=== PATIENT | male | born 1940 | race Caucasian/White ===

== ENCOUNTER → 2017-08-10 13:32 | Outpatient (CLI) | payer MEDICARE, SELFPAY ==
[2017-08-10 12:30] VITALS: BP 146/71; BMI 33.0
--- NOTE | 2017-08-10 13:34 | CT_ITS ---
STUDY: CT CHEST WITH CONTRAST REASON FOR EXAM: Male, 77 years old. Shortness of breath, enlarged lymph nodes, lung cancer 2 years ago status post radiation and chemotherapy. RADIATION DOSAGE (If Supplied By Facility): CTDIvol = ( 14.51 ) mGy, DLP = ( 1080.83 ) mGycm TECHNIQUE: Transaxial imaging was performed following intravenous administration of 100 ml of Isovue 300 contrast material. Individualized dose optimization techniques were used for this CT. COMPARISON: Prior study of March 17, 2015 FINDINGS: There is increased soft tissue mass with air bronchograms of the medial right upper lobe, measuring approximately 7.6 cm in depth, 2.5 cm in width, and 6.6 cm in length. This density partially encases the distal right main bronchus and encases the proximal right upper lobe bronchus. There is a right hilar mass/adenopathy measuring approximately 2.7 x 2.5 cm, similar to the previous study. There is a calcified subcarinal node. There are additional subcarinal nodes measuring up to 1.1 cm in short axis. These appear stable in the interval. There is no demonstrated pleural abnormality. The heart size is within normal limits. Coronary arterial calcifications are present. There is no pericardial effusion. The main, left, and right pulmonary arteries are normal in caliber and contour. There are calcified plaques of the thoracic aorta. There are multi-level degenerative changes of the thoracic spine. Calcific sludge/gravel is seen in the gallbladder. CT/Chest WITH Contrast IMPRESSION: 1. Soft tissue mass with air bronchograms of the medial right upper lobe measuring approximately 7.6 x 2.5 x 6.6 cm. This is increased in size from the prior study, suggestive of progression of primary disease process. This density partially encases the distal right main bronchus and encases the proximal right upper lobe bronchus. 2. There is a right hilar mass/adenopathy measuring approximately 2.7 x 2.5 cm, similar to the previous study. 3. There are subcarinal nodes measuring up to 1.1 cm in short axis, stable in the interval. 4. There is calcific sludge/gravel within the gallbladder. Electronically Signed: Cecilio Mares MD at 23:36 EST , Service support ,
--- NOTE | 2017-08-10 13:41 | CT_ITS ---
STUDY: CT SOFT TISSUE NECK WITH CONTRAST REASON FOR EXAM: Male, 77 years old. Shortness of breath, enlarged lymph nodes, history of lung cancer 2 years ago with radiation and chemotherapy. RADIATION DOSAGE (If Supplied By Facility): CTDIvol = ( 14.51 ) mGy, DLP = ( 1080.83 ) mGycm TECHNIQUE: The patient was scanned in a multi-detector CT scanner. High resolution transaxial imaging was performed following intravenous administration of 100 ml of Isovue 300 contrast material. Sagittal and coronal images were reconstructed. Individualized dose optimization techniques were used for this CT. COMPARISON: None FINDINGS: Normal bilateral parotid glands. Normal bilateral podiatrist assistant spaces. Normal bilateral parapharyngeal spaces. Carotid arterial calcifications are seen bilaterally. Normal bilateral sublingual and submandibular glands and spaces. Normal visualized nasopharynx. Normal retropharyngeal space. Normal perivertebral space. Normal visualized bilateral faucial tonsils. The visualized tongue, tongue base and oropharynx are normal. The visualized cervical lymph nodes (levels I-) are within normal size limits, and maintain normal morphology. There is no demonstrated solid or cystic mass lesion. There is no abnormal contrast enhancement. Normal epiglottis, bilateral vallecula and hypopharynx. The pre-epiglottic and paraglottic adipose spaces are normal. Normal visualized bilateral piriform sinuses, aryepiglottic folds, vocal cords, and arytenoid-cricoid articulations. Normal subglottic trachea. The right thyroid lobe appears normal. 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 Chest findings are reported separately. There is mucosal thickening of the right maxillary sinus. There are degenerative changes of the atlantoaxial articulation. There is moderately severe narrowing of the C5-C6 disc space with reactive sclerosis of the adjacent endplates. There is endplate spondylosis of C5-C7. CT/Soft Tissue Neck WITH Contrast IMPRESSION: Carotid arterial calcifications are present. 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 Mucosal thickening of the right maxillary sinus. Cervical degenerative changes as described above. No cervical adenopathy is evident. Electronically Signed: Cecilio Mares MD at 22:41 EST , Service support ,
== END ==
PROVIDERS: Family Provider Family Medicine; PCP Family Medicine; Visit Provider Nurse Practitioner Family
DX: C34.90 Malignant neoplasm of unspecified part of unspecified bronchus or lung (principal); R59.0 Localized enlarged lymph nodes; R06.00 Dyspnea, unspecified; R05 Cough
CPT/HCPCS: 70491; 71260; Q9967

== ENCOUNTER → 2017-08-28 08:16 | Outpatient (CLI) | payer MEDICARE, SELFPAY ==
--- NOTE | 2017-08-28 07:00 | PET_ITS ---
EXAMINATION: FDG PET CT INDICATIONS: A 77-year-old male with reported history of carcinoma of the lung presenting for restaging examination. COMPARISON EXAMINATION: Previous FDG PET study dated 11/14/15, CT of the chest report dated 08/10/17. INDEX LESION SIZE SUV INTERPRETATION NEW: Right upper medial hemithorax pulmonary parenchyma, right upper lobe 1.9 Quantitative criteria for viable neoplasm are not fulfilled, sequential radiologic investigation recommended NON-INDEX LESION SIZE SUV INTERPRETATION PERSISTENT: Bilateral-lateral neck 1.8 compared to 2.5, 11/14/15 Quantitative criteria for viable neoplasm are not fulfilled PERSISTENT: Bilateral thoracic perihilum, mediastinum 2.9 (max) compared to 2.6, 11/14/15 Quantitative criteria for viable neoplasm are not fulfilled TECHNIQUE: Following the intravenous administration of 15.56 mCi of F-18 deoxyglucose via the right forearm, multiplanar image acquisitions of the neck, chest, abdomen and pelvis to level of mid thigh, obtained at one hour post radiopharmaceutical administration contemporaneously interpreted with the current CT of the neck, chest, abdomen and pelvis to level of mid thigh, dated 08/28/17 via coregistration and previous FDG PET study dated 11/14/15, CT of the chest report dated 08/10/17 reveal: SERUM GLUCOSE LEVEL: 119 mg/dl. HEIGHT: 68 inches. WEIGHT: 217 lbs. FINDINGS: 1. Redefined increased glucose metabolism is manifest in the subcarinal mediastinum and bilateral thoracic perihilum generating a current calculated maximum standard uptake value of 2.9 compared to 2.6 defined on the FDG PET study dated 11/14/15. Quantitative criteria for viable neoplasm are not fulfilled. 2. Enhanced glucose concentration is redemonstrated in the bilateral-lateral neck generating a current calculated maximum standard uptake value of 1.8 compared to 2.5 defined on the FDG PET study dated 11/14/15. Quantitative criteria for viable neoplasm are not fulfilled. 3. Mild increased glucose concentration is currently demonstrated in the right upper medial hemithorax pulmonary parenchyma, right upper lobe generating a calculated maximum standard uptake value of 1.9. Quantitative criteria for viable pulmonary parenchymal neoplasm are not fulfilled. 4. Normal physiologic distribution of the radiopharmaceutical is apparent in the hepatic (3.0/2.9) and splenic parenchyma, both renal units, bladder and visualized intestinal tract. There is uniform distribution of the radiopharmaceutical concentration compared on the cerebellar hemispheres and cerebral cortex. Diffuse intestinal tract activity is noted throughout all four quadrants of the abdominal-pelvic retroperitoneum, mesentery consistent with normal physiologic distribution of the radiopharmaceutical. Pertinent CT findings are as follows. CHEST: Atherosclerotic calcification is defined in the thoracic aorta without evidence of dilatation, aneurysm formation. Coronary arterial calcification is observed. Calcified mediastinal and thoracic perihilar soft tissue densities demonstrate no evidence of quantitatively significant increased glucose metabolism. Calcified parenchymal densities noted in the bilateral hemithorax are ametabolic and remain morphologically stable. ABDOMEN AND PELVIS: Cholelithiasis is defined. Calcified granuloma formation is noted within the splenic parenchyma. There is fatty metamorphosis involving the hepatic parenchyma. Atherosclerotic calcification is defined in the abdominal aorta. There is evidence of an abdominal aortic bi-iliac graft placement. Abdominal-pelvic arterial calcification is observed. A fat-containing left inguinal hernia is noted. Right-left inguinal soft tissue densities are non-glucose avid. SKELETAL: Degenerative changes defined in the cervical, thoracic and lumbar spine demonstrate no evidence for glucose hypermetabolism. PET/PET/CT Tumor Base -Thigh Subs IMPRESSION: 1. NEGATIVE EXAMINATION. There is no definitive quantitative scintigraphic evidence of recurrent-metastatic viable neoplasm. 2. Mild enhanced glucose concentration newly identified in the right upper medial lung zone, right upper lobe does not fulfill quantitative criteria for viable neoplasm. (Esxton et al, Annals of Internal Medicine, 138:724, 2003). 3. Metabolic and/or anatomic stability may be ensured in the right hemithorax pulmonary parenchymal abnormality with repeat FDG PET study and/or CT of the thorax in three months. (Xiu, Journal of Nuclear Medicine 45:88, P2004. Susan, Seminars in Thoracic and Cardiovascular Surgery 14:292, 2002). 4. The mild enhanced glucose concentration redefined in the bilateral thoracic perihilum and mediastinal structures does not fulfill quantitative criteria for malignant transformation. (Conor, Journal of Clinical Oncology 16:2142, 1998). 5. Facilitated glucose concentration identified in the bilateral-lateral neck does not fulfill quantitative criteria for viable neoplasia. 6. Overall, compared to the prior FDG PET study dated 11/14/15, there is current absence of defined viable neoplastic disease. Electronic Signature Simón Calderon D.O. Electronically Signed: Simón Calderon DO at 23:40 EST Tel , Service support ,
== END ==
PROVIDERS: Family Provider Family Medicine; PCP Family Medicine; Visit Provider Internal Medicine Medical Oncology
DX: C34.11 Malignant neoplasm of upper lobe, right bronchus or lung (principal)
CPT/HCPCS: 78815; A9552; A4216

== ENCOUNTER → 2017-11-16 12:49 | Outpatient (CLI) | payer MEDICARE, SELFPAY ==
--- NOTE | 2017-11-16 12:58 | CT_ITS ---
STUDY: CT CHEST/THORAX WITHOUT CONTRAST REASON FOR EXAM: Male, 77 years old. Non-small cell lung cancer. RADIATION DOSAGE (If Supplied By Facility): CTDIvol = ( 15.29 ) mGy, DLP = ( 481.34 ) mGycm TECHNIQUE: Transaxial imaging was performed without the administration of intravenous contrast material. Multiplanar coronal and sagittal images were reformatted. Individualized dose optimization techniques were used for this CT. COMPARISON: PET/CT August 28, 2017; CT chest/thorax August 10, 2017 FINDINGS: There is stable subsegmental scarring/atelectasis with air bronchograms in the medial to posterior right upper lobe. Similar, but much smaller finding is seen along the medial margin of the left upper lobe along the anterior mediastinum. There is a 7 mm calcified granuloma in the medial basilar right lower lobe, as well as a cluster of granulomata in the medial left upper lobe at the anterior margin of the left hilum. No new infiltrate. There is no demonstrated pleural abnormality. Normal heart. There is small volume thickening or fluid in the anterior and inferior pericardium, as well as in a pericardial recess anterior to the ascending aorta. There are calcifications of the coronary arteries. Stable calcified lymph nodes in the aorticopulmonary window, subcarinal tissues, and bilateral hilar regions. There is a stable irregular shaped 1.65 x 0.75 x 1.35 cm precarinal soft tissue density To the right of a partially calcified subcarinal lymph node is a stable 2.75 x 1.15 x 0.95 cm lymph node. A 1.35 x 1.35 x 0.8 cm subcarinal lymph node is also again noted. There is a stable 1.45 x 0.7 x 1.0 cm lymph node just below the bifurcation of the left bronchus (series 602 image 135, series 2 image 53). Normal unenhanced pulmonary arteries. There is mild atherosclerotic calcification of the aortic arch proximal brachiocephalic arteries, and descending thoracic aorta. There are stable multi-level degenerative changes of the thoracic spine, as well as stable degenerative arthrosis at the sternomanubrial articulation. There is mild diffuse decreased attenuation of the liver parenchyma, consistent with steatosis. Several punctate calcified granulomata are again noted in the spleen. CT/Chest without Contrast IMPRESSION: 1. Stable subsegmental scarring/atelectasis in the paramediastinal medial posterior right upper lobe, as well as mild focal scarring in the medial left upper lobe. No new infiltrate. 2. Stable findings of old calcified granulomatous disease. 3. Several stable borderline enlarged mediastinal lymph nodes again seen, as described. No new adenopathy. 4. Atherosclerotic calcifications of the coronary arteries and thoracic aorta again noted. 5. Hepatic steatosis. Electronically Signed: Juarez Spence MD at 13:13 EDT , Service support ,
== END ==
PROVIDERS: Family Provider Family Medicine; PCP Family Medicine; Visit Provider Internal Medicine Medical Oncology
DX: C34.91 Malignant neoplasm of unspecified part of right bronchus or lung (principal); R91.8 Other nonspecific abnormal finding of lung field; Z85.118 Personal history of other malignant neoplasm of bronchus and lung
CPT/HCPCS: 71250

== ENCOUNTER → 2018-11-06 16:05 | Outpatient (CLI) | payer MEDICARE, SELFPAY ==
[2018-09-14 09:12] VITALS: BMI 33.1
--- NOTE | 2018-11-06 | IMM_PTH ---
PATIENT: MARIANO QUARLES LOC: [facility] U#:[id number] AGE/SX: 84/M ROOM: RE11/06/[address]: Dr. Hilario Griffith MD : 1940 BED: DIS: SPEC #: [id number] RECD: 11/09/18 13:01 STATUS: TALHA RERenato #: [id number] MOHSEN: 11/06/18 00:[address]: Hilario Griffith DEPT: IMMUNOHISTOCHEMISTRY RECD BY: Almita Pratt ENTERED: 11/09/18 13:02 SP TYPE: IMMUNO OTHR DR: Dr. Trino Kasper MD Tissues: F - PROSTATE LEFT Procedures: P40 (add) 34BE12 (initial) PHYSICIAN & INSTITUTION [place] [address] SPECIMEN INFORMATION: Tissue Source: Left prostate, base, core biopsy Clinical Info: Elevated PSA Specimen Number: [id number] CPT code: 34908, 78893 METHODOLOGY: Deparaffinized sections of prefer/formalin-fixed tissue or PAP/DQ stained slides are incubated with monoclonal/polyclonal antibodies/oligonucleotide probes. Localization is made via biotin free immunoperoxidase method. Appropriate controls are performed and reacted as expected. Results on target cell population are indicated in the following table: RESULTS: ANTIBODY / CLONE RESULT Block F P40 (BC28) positive 34BE12 (34BE12) positive These tests were developed and their performance characteristics determined by [facility]. They may not have been cleared or approved by the U.S. Food and Drug Administration. The FDA has determined that such clearance or approval is not necessary. INTERPRETATION: F. Left prostate, base, core biopsy: Negative for adenocarcinoma. SJ:pedro 11/12/18
--- NOTE | 2018-11-06 08:00 | PROSBIL_PTH ---
PATIENT: MARIANO QUARLES LOC: [facility] U#:[id number] AGE/SX: 84/M ROOM: RE11/06/[address]: Dr. Hilario Griffith MD : 1940 BED: DIS: SPEC #: [id number] RECD: 11/08/18 11:08 STATUS: TALHA GABRIELLA #: [id number] MOHSEN: 11/06/18 08:[address]: Hilario Griffith DEPT: SURGICAL PATHOLOGY RECD BY: Jason Xavier ENTERED: 11/08/18 11:09 SP TYPE: PROST BX DYLAN DR: Dr. Trino Kasper MD Tissues: A - PROSTATE RIGHT B - PROSTATE RIGHT C - PROSTATE RIGHT D - PROSTATE LEFT E - PROSTATE LEFT F - PROSTATE LEFT Procedures: PROSTATE BX HEADER OPERATION: Prostate biopsy PRE-OP DIAGNOSIS: Elevated PSA TISSUE SUBMITTED: A - Right apex, B - Right mid, C - Right base, D - Left apex, E - Left mid, F - Left base MICROSCOPIC DIAGNOSIS A. Right prostate, apex, core biopsy: Prostatic tissue, negative for malignancy. B. Right prostate, mid, core biopsy: Prostatic tissue, negative for malignancy. C. Right prostate, base, core biopsy: Prostatic tissue, negative for malignancy. D. Left prostate, apex, core biopsy: Prostatic tissue, negative for malignancy. E. Left prostate, mid, core biopsy: Prostatic tissue, negative for malignancy. Focal mild chronic inflammation. F. Left prostate, base, core biopsy: Prostatic tissue, negative for malignancy. Focal mild chronic inflammation. See comment. SJ:pedro 11/09/18 COMMENT F. Immunohistochemistry ([id number]) supports the above diagnosis. MICROSCOPIC DESCRIPTION Slides are reviewed. GROSS DESCRIPTION A - Received is one container designated prostate, right apex. The specimen consists of one elongated fragment of light triana-white soft tissue measuring 0.9 cm in length and 0.1 cm in diameter. The specimen is totally submitted in one cassette. B - Received is one container designated prostate, right mid. The specimen consists of one elongated fragment of light triana-white soft tissue measuring 0.8 in length and 0.1 cm in diameter. The specimen is totally submitted in one cassette. C - Received is one container designated prostate, right base. The specimen consists of one elongated fragment of light triana-white soft tissue measuring 0.8 cm in length and 0.1 cm in diameter. The specimen is totally submitted in one cassette. D - Received is one container designated prostate, left apex. The specimen consists of one elongated fragment of light triana-white soft tissue measuring 0.6 cm in length and 0.1 cm in diameter. The specimen is totally submitted in one cassette. E - Received is one container designated prostate, left mid. The specimen consists of one elongated fragment of light triana-white soft tissue measuring 1 cm in length and 0.1 cm in diameter. The specimen is totally submitted in one cassette. F - Received is one container designated prostate, left base. The specimen consists of one elongated fragment of light triana-white soft tissue measuring 1 cm in length and 0.1 cm in diameter. The specimen is totally submitted in one cassette. / CE:pedro 11/08/18 TC:5 CPT: G0146
== END ==
PROVIDERS: Family Provider Family Medicine; PCP Family Medicine; Referring Provider Urology; Visit Provider Urology
DX: R97.20 Elevated prostate specific antigen [PSA] (principal)
CPT/HCPCS: 88305; 88341; 88342; G0416

== ENCOUNTER → 2018-11-19 12:41 | Outpatient (CLI) | payer MEDICARE, SELFPAY ==
[2018-09-14 09:12] VITALS: BMI 33.1
--- NOTE | 2018-11-19 12:43 | CT_ITS ---
STUDY: CT CHEST WITH CONTRAST REASON FOR EXAM: Male, 78 years old. Lung cancer RADIATION DOSAGE (If Supplied By Facility): CTDIvol = ( 19.79 ) mGy, DLP = ( 1449.44 ) mGycm TECHNIQUE: Transaxial imaging was performed following intravenous administration of 100 ml of Isovue 300 contrast material. Coronal and sagittal reformatted images were created. Individualized dose optimization techniques were used for this CT. COMPARISON: CT chest dated 11/16/2017. FINDINGS: There is stable linear opacity with air bronchograms in the medial aspect of the right upper lobe which likely represents post treatment change and scarring. There is a new 5 mm spiculated nodule in the right upper lobe (image 26 series 6). There are stable calcified granulomata noted in the lungs. There are no pulmonary infiltrates or pleural effusions. There is no pneumothorax. The heart and pericardium are within normal limits. Again noted are coronary artery calcifications. There is stable mild mediastinal lymphadenopathy. There is no evidence of thoracic aortic aneurysm. There are no destructive osseous lesions. CT/Chest WITH Contrast IMPRESSION: Stable linear opacity with air bronchograms in the medial aspect of the right upper lobe which is likely due to posttreatment change and/or scarring. If indicated, further evaluation with PET/CT can be performed to assess for residual disease at this site. New 5 mm spiculated nodule in the right upper lobe. Short-term follow-up is recommended. Stable mild mediastinal lymphadenopathy. Electronically Signed: Roly Vazquez, at 20:26 EDT Tel , Service support ,
--- NOTE | 2018-11-19 12:43 | CT_ITS ---
STUDY: CT ABDOMEN WITH CONTRAST REASON FOR EXAM: Male, 78 years old. Lung cancer. RADIATION DOSAGE (If Supplied By Facility): CTDIvol = ( 19.79 ) mGy, DLP = ( 1449.44 ) mGycm TECHNIQUE: Transaxial images were obtained post I.V. administration of 100 IV Isovue 300, and with oral contrast. Sagittal and coronal images were reconstructed. Individualized dose optimization techniques were used for this CT. COMPARISON: PET/CT dated 08/28/2017. FINDINGS: The visualized lung bases are unremarkable. The visualized portions of the heart are within normal limits. Normal liver. The gallstones noted in the gallbladder. The spleen is normal in size. There are calcified granulomata noted in the spleen. Normal pancreas. Normal bilateral adrenal glands. Normal right kidney. There is a simple cyst in the left kidney. Normal visualized stomach. The visualized bowel demonstrates no evidence of obstruction. There is a 3.6 x 3.5 cm infrarenal abdominal aortic aneurysm with a patent aortobiiliac endograft in place. Normal inferior vena cava. Normal retroperitoneum. Normal abdominal wall. Normal osseous structures. CT/Abdomen WITH IV Contrast IMPRESSION: No evidence of metastatic disease in the abdomen. Nonacute findings, as above. Electronically Signed: Roly Vazquez, at 14:46 EDT Tel , Service support ,
[2018-11-19 12:55] LABS: CREATININE FINGERSTICK 1.8 mg/dL (0.70-1.30)
== END ==
PROVIDERS: Family Provider Family Medicine; PCP Family Medicine; Referring Provider Internal Medicine Medical Oncology; Visit Provider Internal Medicine Medical Oncology
DX: C34.11 Malignant neoplasm of upper lobe, right bronchus or lung (principal)
CPT/HCPCS: 71260; 74160; Q9967

== ENCOUNTER → 2019-04-11 07:38 | Outpatient (CLI) | payer MEDICARE, SELFPAY ==
[2019-02-07 10:19] VITALS: BMI 31.7
--- NOTE | 2019-04-11 07:40 | CT_ITS ---
STUDY: CT CHEST WITH CONTRAST REASON FOR EXAM: Male, 78 years old. Lung cancer RADIATION DOSAGE (If Supplied By Facility): CTDIvol = ( 14.13 ) mGy, DLP = ( 522.87 ) mGycm TECHNIQUE: Transaxial imaging was performed following intravenous administration of IV Isovue 300 100. Individualized dose optimization techniques were used for this CT. COMPARISON: 11/19/2018 FINDINGS: Stable 6 mm spiculated nodule in the right upper lobe on image 31 of series 4. Fibrotic medial right upper lung changes compatible with prior radiation therapy. Mild pulmonary emphysema. There is no demonstrated pleural abnormality. Normal heart and pericardium. Calcified mediastinal lymph nodes. Calcified right hilar lymph nodes. Stable irregular densities involving the medial left upper lobe adjacent to the mediastinum, likely related to scarring. Calcified granuloma in the lingula. Normal enhanced pulmonary arteries. Normal aorta arch and descending thoracic aorta. There are multi-level degenerative changes of the thoracic spine. There is no demonstrated abnormality of the visualized upper abdomen. CT/Chest WITH Contrast IMPRESSION: Stable 6 mm spiculated right upper lobe nodule. No new suspicious lung or mediastinal lesions are seen when compared to prior study. Electronically Signed: Murali Sumner MD at 17:27 EDT Tel , Service support ,
[2019-04-11 08:01] LABS: CREATININE FINGERSTICK 1.6 mg/dL (0.70-1.30)
[2019-04-11 08:12] VITALS: BMI 32.1
[2019-04-11] MEDS: 0.9% Saline Lock 10 ML Syringe IV ×2 (08:27→08:31)
[2019-04-11] MEDS: DiphenhydrAMINE 50 MG/ML Syringe IV (08:31)
== END ==
LOC: CT 07:39
PROVIDERS: Family Provider Family Medicine; PCP Family Medicine; Referring Provider Internal Medicine Medical Oncology; Visit Provider Internal Medicine Medical Oncology
DX: Z85.118 Personal history of other malignant neoplasm of bronchus and lung (principal)
CPT/HCPCS: 71260; Q9967; A4216